=== PATIENT | female | born 1960 | race Hispanic/Latino ===

== ENCOUNTER 2023-12-29 10:44 | Emergency (ER) | payer BC ==
--- OUTSIDE RECORDS SUMMARY | 2023-12-29 12:11 | XMS REPORT | Continuity of Care Document ---
Author Name Unknown Address [address] [place] [address] [facility] thconnect Address [address] [place] [address] Care Team Providers Care Sounding Device Operator Name Role Phone Edward Menard Primary Care Physician [phone] [email or web address] Attending Clinician Unavaila ALEJO Castano Attending Clinician Unavailable Therapy, Ad[facility] Covid Infusion Attending Clinician Alejo Beard MD Attending Clinician [phone] Doctor Unassigned, [place] Attending Clinician U navailable [email or web address] Admitting Clinician Raul wallis Payers Payer Name Policy Type Policy Number Effective Date Expirati on Date Source [facility] [id number] 2017 00:00:00 Allergies, Adverse Reactions, Alerts Allergy Name Allergy Type Status Severity Reaction(s) Onset Date Inactive Date Treating Clinician Comments Source Avocado Propensi ty to adverse reaction s Active Rash 2020-07 00:00: 00 [facility] Banana Propensi ty to adverse reaction s Active Rash 2020-07 00:00: 00 [facility] Latex, Natural Rubber Propensi ty to adverse reaction s Active Rash 2020-07 00:00: 00 [facility] AVOCADO DRUG INGREDI Active Rash 2020-07 00:00: 00 [facility] BANANA DRUG INGREDI Active Rash 2020-07 00:00: 00 [facility] LATEX, NATURAL RUBBER Drug Class Active Rash 2020-07 00:00: 00 [facility] NO KNOWN ALLERGIE S Drug Class Active [facility] Social History Social Habit Start Date Stop Date Quantity Comments Source Sex Assigned At 1960 00:00:00 1960 00:00:00 [facility] Smoking Status Start Date Stop Date Source Unknown if ever smoked [facility] Medications Ordered Medication Name Filled Medication Name Start Date Stop Date Current Medication? Ordering Clinician Indication Dosage Frequency Signature (SIG) Comments Components Source casirivimab -imdevimab (REGEN-COV (EUA)) injection 1,200 mg 2020-07 23:00: 00 05-07 21:23 :00 No [id number] 1200mg 1,200 mg, Subcutaneo us, ONCE, 1 dose, On Thu05/07/21 at 1800, Routine [facility] Vital Signs Vital Name Observation Time Observation Value Comments S ource Systolic blood pressure 2021-05-07 22:08:00 119 mm[Hg] [facility] Diastolic blood pressure 2021-05-07 22:08:00 79 mm[Hg] [facility] Heart rate 2021-05-07 22:08:00 83 /min [facility] Body temperature 2021-05-07 22:08:00 36.78 [place] [facility] Respiratory rate 2021-05-07 22:08:00 18 /min [facility] Oxygen saturation in Arterial blood by Pulse oximetry 2021-05-07 22:08:00 96 /min [facility] Body height 2021-05-07 21:47:00 149.9 cm [facility] Body weight 2021-05-07 21:47:00 78.019 kg [facility] BMI 2021-05-07 21:47:00 34.74 kg/m2 [facility] Procedures Procedure Date / Time Performed Performing Clinicia n Source [id number] CONSENT 2021-05-07 05:01:00 Doctor Unas signed, [place] [facility] Encounters Start Date/Time End Date/Time Encounter Type Admission Type Attending Clinicians Care Facility Care Department Encounter ID Source 2023-05-06 00:00:00 2023-05-06 00:00:00 Outpatient [email or web address] diyala_S [facility] [id number] [facility] 2021-05-07 16:00:00 2021-05-07 16:00:00 Outpatient ALEJO CARPIO [facility] [id number] [facility] 2021-05-07 14:45:17 2021-05-07 15:45:17 Nurse Visit Therapy, Adc Covid Alejo Cameron [facility] 1..[id number] [facility] 2021-05-07 00:00:00 2021-05-07 00:00:00 Orders Only Doctor Unassigned, [place] [facility] 1..[id number] [facility]
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
[2023-12-29 14:40] VITALS: BP 133/77; TEMP 98.2; O2SAT 99
== END 2023-12-29 13:44 | disposition home or self-care (01) ==
LOC: ER 10:44
DX: R07.89 Other chest pain (principal); V53.5XXA Driver of pick-up truck or van injured in collision with car, pick-up truck or van in traffic accident, initial encounter; R05.9 Cough, unspecified; Z91.018 Allergy to other foods; Z91.040 Latex allergy status
CPT/HCPCS: 71046